=== PATIENT | female | born 1995 | race Caucasian/White ===

== ENCOUNTER → 2016-09-13 | Outpatient (CLI) | payer OTHER ==
--- NOTE | 2016-09-13 09:21 | WOMENS IMAGING REPORT ---
EXAM DESCRIPTION: U/S ABDOMEN LIMITED COMPLETED DATE/TIME: 09/13/2016 9:00 am REASON FOR STUDY: R94.5 R94.5 ABNORMAL RESULTS OF LIVER FUNCTION STUDIES COMPARISON: None. TECHNIQUE: Dynamic and static grayscale images acquired of the abdomen and recorded on PACS. Additio nal selected color Doppler and spectral images recorded. LIMITATIONS: None. FINDINGS: PANCREAS: No masses. Visualized pancreatic duct normal caliber. LIVER: No masses. Echotexture normal. LIVER VASCULATURE: Normal directional flow of the main portal vein and hepatic veins. GALLBLADDER: No stones. Normal wall thickness. No pericholecystic fluid. ULTRASOUND-DETECTED NOYOLA'S SIGN: Negative. INTRAHEPATIC DUCTS AND COMMON DUCT: CBD and intrahepatic ducts normal caliber. No filling defects. INFERIOR VENA CAVA: Normal flow. AORTA: No aneurysm. RIGHT KIDNEY: Normal size. Normal echogenicity. No solid or suspicious masses. No hydronephrosis. No calcifications. PERITONEAL AND RIGHT PLEURAL SPACE: No ascites or effusions. OTHER: No other significant findings. IMPRESSION: NORMAL RIGHT UPPER QUADRANT ULTRASOUND. TECHNICAL DOCUMENTATION: JOB ID: [id number] [employer] All Rights Reserved
== END ==
LOC: WI 08:18
PROVIDERS: ATTEND Internal Medicine Gastroenterology
DX: R94.5 Abnormal results of liver function studies (principal)
CPT/HCPCS: 76705

== ENCOUNTER 2016-11-18 17:09 | Emergency (ER) | payer OTHER ==
--- NOTE | 2016-11-18 17:28 | ER Document Report ---
ED General - General Chief Complaint: Lower Abdominal Pain Stated Complaint: ABDOMINAL PAIN Time Seen by Provider: 11/18/16 17:28 Mode of Arrival: Ambulatory Information source: Patient Notes: 21-year-old female presents with complaints of left flank pain suprapubic pressure. Patient has had similar episodes over the past few months, has been seen by 6 different physicians has had colonoscopies ultrasounds CODING CONSULTANT evaluations. Patient denies any fevers or chills notes after she urinates she has a sharp pain TRAVEL OUTSIDE OF THE [place] IN LAST 30 DAYS: No - HPI Onset: Other Onset/Duration: Intermittent Quality of pain: Sharp Severity: Mild Pain Level: 1 Associated symptoms: None Exacerbated by: Other Relieved by: Denies Similar symptoms previously: Yes Recently seen / treated by doctor: Yes - Related Data Allergies/Adverse Reactions: No Known Allergies Allergy (Unverified 11/18/16 17:18) Past Medical History - Social History Smoking Status: Never Smoker Cigarette use (# per day): No Chew tobacco use (# tins/day): No Smoking Education Provided: No Family History: Reviewed & Not Pertinent Renal/ Medical History: Denies: Hx Peritoneal Dialysis Review of Systems - Review of Systems Notes: REVIEW OF SYSTEMS: CONSTITUTIONAL : Denies fever, chills, or sweats. Denies recent illness. EENT: Denies eye, ear, throat, or mouth pain or symptoms. Denies nasal or sinus congestion or discharge. Denies throat, tongue, or mouth swelling or difficulty swallowing. CARDIOVASCULAR: Denies chest pain. Denies palpitations or racing or irregular heart beat. Denies ankle edema. RESPIRATORY: Denies cough, cold, or chest congestion. Denies shortness of breath, difficulty breathing, or wheezing. GASTROINTESTINAL: Denies abdominal pain or distention. Denies nausea, vomiting , or diarrhea. Denies blood in vomitus, stools, or per rectum. Denies black, tarry stools. Denies constipation. GENITOURINARY: Admits to sharp pain after she urinates FEMALE GENITOURINARY: Denies vaginal bleeding, heavy or abnormal periods, irregular periods. Denies vaginal discharge or odor. MUSCULOSKELETAL: Denies back or neck pain or stiffness. Denies joint pain or swelling. SKIN: Denies rash, lesions or sores. HEMATOLOGIC : Denies easy bruising or bleeding. LYMPHATIC: Denies swollen, enlarged glands. NEUROLOGICAL: Denies confusion or altered mental status. Denies passing out or loss of consciousness. Denies dizziness or lightheadedness. Denies headache. Denies weakness or paralysis or loss of use of either side. Denies problems with gait or speech. Denies sensory loss, numbness, or tingling. Denies seizures. PSYCHIATRIC: Denies anxiety or stress. Denies depression, suicidal ideation, or homicidal ideation. ALL OTHER SYSTEMS REVIEWED AND NEGATIVE. PHYSICAL EXAMINATION: GENERAL: Well-appearing, well-nourished and in no acute distress. HEAD: Atraumatic, normocephalic. EYES: Pupils equal round and reactive to light, extraocular movements intact, conjunctiva are normal. ENT: Nares patent, oropharynx clear without exudates. Moist mucous membranes. NECK: Normal range of motion, supple without lymphadenopathy LUNGS: Breath sounds clear to auscultation bilaterally and equal. No wheezes rales or rhonchi. HEART: Regular rate and rhythm without murmurs ABDOMEN: Soft, left flank pain. Female : deferred Musculoskeletal: Normal range of motion, no pitting or edema. No cyanosis. NEUROLOGICAL: Cranial nerves grossly intact. Normal speech, normal gait. Normal sensory, motor exams PSYCH: Normal mood, normal affect. SKIN: Vitiligo Dictation was performed using [employer] voice recognition software Physical Exam - Vital signs Vitals: Temp Pulse Resp BP Pulse Ox 98.5 F 85 16 134/80 H 97 11/18/16 17:16 11/18/16 17:16 11/18/16 17:16 11/18/16 17:16 11/18/16 17:16 Course - Re-evaluation Re-evalutation: 11/18/16 17:39 Patient appears to have urinary complaints, however has had extensive workup up to this point, urinalysis pending 11/18/16 19:07 UA was negative for any sign of infection CT performed which is consistent with a hemorrhagic cyst which would explain patients intermittent pain. pt otherwise appears well will be dc home with close follow up. Pt otherwise has no severe pain consistent with an ovarian torsion After performing a Medical Screening Examination, I estimate there is LOW risk for ACUTE APPENDICITIS, BOWEL OBSTRUCTION, ACUTE CHOLECYSTITIS, PERFORATED DIVERTICULITIS, INCARCERATED HERNIA, PANCREATITIS, PELVIC INFLAMMATORY DISEASE, PERFORATED ULCER, ECTOPIC , or TUBO-OVARIAN ABSCESS, thus I consider the discharge disposition reasonable. Also, there is no evidence or peritonitis , sepsis, or toxicity. I have reevaluated this patient multiple times and no significant life threatening changes are noted. The patient and I have discussed the diagnosis and risks, and we agree with discharging home with close follow-up with the understanding that symptoms and presentations can change. We also discussed returning to the Emergency Department immediately if new or worsening symptoms occur. We have discussed the symptoms which are most concerning (e.g., bloody stool, fever, changing or worsening pain, vomiting) that necessitate immediate return. - Vital Signs Vital signs: Temp Pulse Resp BP Pulse Ox 98.5 F 85 16 134/80 H 97 11/18/16 17:16 11/18/16 17:16 11/18/16 17:16 11/18/16 17:16 11/18/16 17:16 - Laboratory Laboratory results interpreted by me: 11/18/16 18:05 Ur Leukocyte Esterase TRACE H - Diagnostic Test Radiology reviewed: Image reviewed, Reports reviewed - hemorrhagic cyst Discharge - Discharge Clinical Impression: Hemorrhagic ovarian cyst Abdominal pain Qualifiers: Abdominal location: lower abdomen, unspecified Qualified Code(s): R10.30 - Lower abdominal pain, unspecified Condition: Stable Disposition: HOME, SELF-CARE Instructions: Ovarian Cyst ([facility]) Referrals: [facility] [Provider Group] - Follow up tomorrow
[2016-11-18 18:26] LABS: APPEARANCE,URINE CLEAR; BILIRUBIN,URINE NEGATIVE (NEGATIVE); GLUCOSE, URINE NEGATIVE (NEGATIVE); KETONES,URINE NEGATIVE (NEGATIVE); LEUKOCYTE ESTERASE,URINE TRACE (NEGATIVE); NITRITE,URINE NEGATIVE (NEGATIVE); PROTEIN,URINE NEGATIVE (NEGATIVE); URINE SPECIFIC GRAVITY 1.019; UROBILINOGEN,URINE NEGATIVE mg/dL (<2.0)
--- NOTE | 2016-11-18 19:02 | RADIOLOGY REPORT (SQ) ---
EXAM DESCRIPTION: CT LTD RENAL STONE PROTOCOL ON COMPLETED DATE/TIME: 11/18/2016 6:49 pm REASON FOR STUDY: left flank pain COMPARISON: None. TECHNIQUE: CT scan of the abdomen and pelvis performed without intravenous or oral contrast. Images reviewed with lung, soft tissue, and bone windows. Reconstructed coronal and sagittal MPR images revi ewed. All images stored on PACS. All CT scanners at this facility use dose modulation, iterative reconstruction, and/or weight based d osing when appropriate to reduce radiation dose to as low as reasonably achievable (ALARA). [facility]: Dose Right [facility]: CareDose [facility]: Dose Right [facility]: Teradose 4D [facility]: Smart BorderJump RADIATION DOSE: Up-to-date CT equipment and radiation dose reduction techniques were employed. CTDIv ol: 5.1 mGy. DLP: 267 mGy-cm.mGy. LIMITATIONS: None. FINDINGS: LOWER CHEST: No significant findings. No nodules or infiltrates. NON-CONTRASTED LIVER, SPLEEN, ADRENALS: Evaluation limited by lack of IV contrast. No identified sign ificant masses. PANCREAS: No masses. No peripancreatic inflammatory changes. GALLBLADDER: No identified stones by CT criteria. No inflammatory changes to suggest cholecystitis. RIGHT KIDNEY AND URETER: No suspicious masses. Assessment limited by lack of IV contrast. No signif icant calcifications. No hydronephrosis or hydroureter. LEFT KIDNEY AND URETER: No suspicious masses. Assessment limited by lack of IV contrast. No signifi cant calcifications. No hydronephrosis or hydroureter. AORTA AND RETROPERITONEUM: No aneurysm. No retroperitoneal masses or adenopathy. BOWEL AND PERITONEAL CAVITY: No obvious masses or inflammatory changes. No free fluid. APPENDIX: Normal. PELVIS, BLADDER, AND ABDOMINAL WALL:4.5 cm hemorrhagic appearing lesion in the left adnexa with areas of hemorrhagic fluid in the pelvis. Intrauterine device is present in the uterus. . Bladder normal. BONES: No significant findings. OTHER: No other significant finding. IMPRESSION: 4.5 cm hemorrhagic appearing lesion in the left adnexa with areas of hemorrhagic fluid i n the pelvis. Consider pelvic ultrasound to further characterize. TECHNICAL DOCUMENTATION: JOB ID: [id number] Quality ID # [id number]: Final reports with documentation of one or more dose reduction techniques (e.g., Au tomated exposure control, adjustment of the mA and/or kV according to patient size, use of iterative reconstruction technique) 2010 [facility] [employer]- All Rights Reserved
[2016-11-18 19:20] VITALS: BP 129/86
== END 2016-11-18 19:20 | disposition home or self-care (01) ==
LOC: ER 17:09
DX: N83.202 Unspecified ovarian cyst, left side (principal); R10.30 Lower abdominal pain, unspecified
CPT/HCPCS: 76380; 81001; 81025; 99284

== ENCOUNTER → 2017-04-23 | Outpatient (CLI) | payer OTHER ==
--- NOTE | 2017-04-23 14:08 | RADIOLOGY REPORT (SQ) ---
EXAM DESCRIPTION: CHEST PA/LATERAL COMPLETED DATE/TIME: 04/23/2017 1:51 pm REASON FOR STUDY: COUGH COMPARISON: None. EXAM PARAMETERS: NUMBER OF VIEWS: two views TECHNIQUE: Digital Frontal and Lateral radiographic views of the chest acquired. RADIATION DOSE: NA LIMITATIONS: none FINDINGS: LUNGS AND PLEURA: No opacities, masses or pneumothorax. No pleural effusion. MEDIASTINUM AND HILAR STRUCTURES: No masses or contour abnormalities. HEART AND VASCULAR STRUCTURES: Heart normal size. No evidence for failure. BONES: No acute findings. HARDWARE: None in the chest. OTHER: No other significant finding. IMPRESSION: NO SIGNIFICANT RADIOGRAPHIC FINDING IN THE CHEST. TECHNICAL DOCUMENTATION: JOB ID: [id number] [employer]- All Rights Reserved
== END ==
LOC: OD 13:39
PROVIDERS: ATTEND Nurse Practitioner Family
DX: R05 Cough (principal)
CPT/HCPCS: 71046

== ENCOUNTER 2018-05-23 18:45 | Emergency (ER) | payer OTHER ==
--- NOTE | 2018-05-23 22:06 | ER Document Report ---
ED Medical Screen (RME) - General Chief Complaint: Pelvic Pain Stated Complaint: PELVIC CRAMPING, DIZZY Time Seen by Provider: 05/23/18 22:01 Primary Care Provider: RIK ALVAREZ FNP-C [Primary Care Provider] - Follow up as needed Notes: 23-year-old female, at about 5 weeks gestation by last menstrual period, chief complaint of worsening pelvic pain on both sides. Pain started getting worse, she states she was recommended by her APPARATUS LINEMAN to come in for evaluation. Denies vaginal bleeding, dysuria, discharge, or any other complaints. TRAVEL OUTSIDE OF THE [place] IN LAST 30 DAYS: No - Related Data Allergies/Adverse Reactions: No Known Allergies Allergy (Unverified 11/18/16 17:18) Past Medical History Renal/ Medical History: Denies: Hx Peritoneal Dialysis Past Surgical History: Reports: Hx Section Physical Exam - Vital signs Vitals: Temp Pulse Resp BP Pulse Ox 99.1 F 78 14 133/78 H 99 05/23/18 19:26 05/23/18 19:26 05/23/18 19:26 05/23/18 19:26 05/23/18 19:26 - Abdominal Tenderness: Tender - Mild generalized tenderness in the lower abdomen/pelvic area, nonspecific, no guarding Course - Vital Signs Vital signs: Temp Pulse Resp BP Pulse Ox 99.1 F 78 14 133/78 H 99 05/23/18 19:26 05/23/18 19:26 05/23/18 19:26 05/23/18 19:26 05/23/18 19:26 Doctor's Discharge - Discharge Referrals: RIK ALVAREZ FNP-C [Primary Care Provider] - Follow up as needed
[2018-05-23 22:46] LABS: ABSOLUTE BASOPHILS # (AUTO) 0.1 10^3/uL (0.0-0.2); ABSOLUTE EOSINOPHILS # (AUTO) 0.3 10^3/uL (0.0-0.6); ABSOLUTE LYMPHOCYTES (AUTO) 2.3 10^3/uL (0.5-4.7); ABSOLUTE MONOCYTES (AUTO) 0.7 10^3/uL (0.1-1.4); ABSOLUTE NEUT (AUTO) 6.1 10^3/uL (1.7-8.2); BASOPHILS % (AUTO) 0.6 % (0-2); EOSINOPHILS % (AUTO) 3.5 % (0-6); HEMATOCRIT 41.8 % (36.0-47.0); HEMOGLOBIN 14.3 g/dL (12.0-15.5); LYMPHOCYTES % (AUTO) 24.4 % (13-45); MEAN CORPUSCULAR HEMOGLOBIN 30.5 pg (27.0-33.4); MEAN CORPUSCULAR HGB CONC 34.3 g/dL (32.0-36.0); MEAN CORPUSCULAR VOLUME 89 fl (80-97); MONOCYTES % (AUTO) 7.4 % (3-13); PLATELET COUNT 277 10^3/uL (150-450); RED CELL DISTRIBUTION WIDTH 13.1 % (11.5-14.0); SEGMENTED NEUTROPHILS % (AUTO) 64.1 % (42-78); TOTAL CELLS COUNTED % (AUTO) 100 %; WHITE BLOOD COUNT 9.5 10^3/uL (4.0-10.5)
[2018-05-23 22:50] LABS: APPEARANCE,URINE SLIGHTLY-CLOUDY; BILIRUBIN,URINE NEGATIVE (NEGATIVE); COLOR,URINE STRAW; GLUCOSE, URINE NEGATIVE (NEGATIVE); KETONES,URINE NEGATIVE (NEGATIVE); LEUKOCYTE ESTERASE,URINE NEGATIVE (NEGATIVE); NITRITE,URINE NEGATIVE (NEGATIVE); PROTEIN,URINE NEGATIVE (NEGATIVE); URINE SPECIFIC GRAVITY 1.005; UROBILINOGEN,URINE NEGATIVE mg/dL (<2.0)
--- NOTE | 2018-05-23 23:37 | RADIOLOGY REPORT (SQ) ---
EXAM DESCRIPTION: US TRANSVAGINAL COMPLETED DATE/TME: 05/23/2018 22:04 CLINICAL HISTORY: 23 years, Female, pelvic pain, + HCG COMPARISON: None. TECHNIQUE: Transverse and longitudinal transvaginal sonographic images of the pelvis in a first trimester patient LIMITATIONS: None. FINDINGS: The uterus measures 9.5 x 5.6 x 5.0 cm. There is an intrauterine gestational sac. No visible yolk sac or pole. No detectable heart tones. Cervical length is 2.9 cm. The myometrium is homogenous. The right ovary measures 3.2 x 1.7 x 1.9 cm, the left 3.1 x 2.2 x 1.9 cm. Current ultrasound age is 5 weeks 4 days based on a mean sac diameter of 0.79 cm. No free fluid in the pelvis. No adnexal cyst or mass. Normal flow to both ovaries.. IMPRESSION: Intrauterine gestational sac however no pole, or yolk sac at this time. Current ultrasound age 5 weeks 4 days. Correlate with beta hCG levels. Close obstetric follow-up recommended copyright 2010 [employer]- All Rights Reserved
--- NOTE | 2018-05-24 00:28 | ER Document Report ---
ED GI/ - General Chief Complaint: Pelvic Pain Stated Complaint: PELVIC CRAMPING, DIZZY Time Seen by Provider: 05/23/18 22:01 Primary Care Provider: [facility] [Provider Group] - Follow up as needed Notes: 23-year-old female, at about 5 weeks gestation by last menstrual period, chief complaint of worsening pelvic pain on both sides. Pain started getting worse, she states she was recommended by her SAAS ARCHITECT to come in for evaluation. Denies vaginal bleeding, dysuria, discharge, or any other complaints. TRAVEL OUTSIDE OF THE [place] IN LAST 30 DAYS: No - Related Data Allergies/Adverse Reactions: No Known Allergies Allergy (Verified 05/23/18 22:22) Past Medical History - General Information source: Patient Last Menstrual Period: unknown - Social History Smoking Status: Never Smoker Frequency of alcohol use: None Drug Abuse: None Lives with: Family Family History: Reviewed & Not Pertinent Patient has suicidal ideation: No Patient has homicidal ideation: No - Medical History Medical History: Negative Renal/ Medical History: Denies: Hx Peritoneal Dialysis Past Surgical History: Reports: Hx Section - Immunizations Immunizations up to date: Yes Hx Diphtheria, Pertussis, Tetanus Vaccination: Yes Review of Systems - Review of Systems Constitutional: No symptoms reported EENT: No symptoms reported Cardiovascular: No symptoms reported Respiratory: No symptoms reported Gastrointestinal: See HPI Genitourinary: See HPI Female Genitourinary: See HPI Musculoskeletal: No symptoms reported Skin: No symptoms reported Hematologic/Lymphatic: No symptoms reported Neurological/Psychological: No symptoms reported Physical Exam - Vital signs Vitals: Temp Pulse Resp BP Pulse Ox 99.1 F 78 14 133/78 H 99 05/23/18 19:26 05/23/18 19:26 05/23/18 19:26 05/23/18 19:26 05/23/18 19:26 - Notes Notes: GENERAL: Alert, interacts well. No acute distress. HEAD: Normocephalic, atraumatic. EYES: Pupils equal, round, and reactive to light. Extraocular movements intact. ENT: Oral mucosa moist, tongue midline. Oropharynx unremarkable. Airway patent. Nares patent, no nasal septal hematoma, TM's intact. NECK: Full range of motion. Supple. Trachea midline. LUNGS: Clear to auscultation bilaterally, no wheezes, rales, or rhonchi. No respiratory distress. HEART: Regular rate and rhythm. No murmur ABDOMEN: Minimal generalized lower abdominal tenderness, nonspecific, no guarding GENITOURINARY: Deferred EXTREMITIES: Moves all 4 extremities spontaneously. No edema, normal radial and dorsalis pedis pulses bilaterally. No cyanosis. BACK: no cervical, thoracic, lumbar midline tenderness. No saddle anesthesia, normal distal neurovascular exam. NEUROLOGICAL: Alert and oriented x3. Normal speech. [cranial nerves II through XII grossly intact]. PSYCH: Normal affect, normal mood. SKIN: Warm, dry, normal turgor. No rashes or lesions noted. Course - Re-evaluation Re-evalutation: Patient smiling and well-appearing. Minimal generalized tenderness in the mid to lower abdomen, nonspecific, no guarding. Unremarkable vital signs. CBC unremarkable, urinalysis unremarkable, ultrasound showing IUP, possibly early, possibly not developed correctly. Patient is not bleeding. HCG is elevated. I discussed results with patient in detail. Provided with prescription for her to have her hCG repeated, discussed the different details, discussed close follow-up with [facility]AS ARCHITECT which she already has scheduled. Discussed return precautions in detail. Patient states understanding and agr eement. - Vital Signs Vital signs: Temp Pulse Resp BP Pulse Ox 99 F 79 18 124/68 98 05/24/18 00:28 05/24/18 00:28 05/24/18 00:28 05/24/18 00:28 05/24/18 00:28 - Laboratory Result Diagrams: 05/23/18 22:15 Laboratory results interpreted by me: 05/23/18 05/23/18 22:10 22:10 Beta HCG, Quant 4973.60 H Urine Blood SMALL H Discharge - Discharge Clinical Impression: Pelvic pain affecting Qualifiers: Trimester: first trimester Qualified Code(s): O26.891 - Other specified related conditions, first trimester Condition: Stable Disposition: HOME, SELF-CARE Additional Instructions: Your ultrasound shows a in the uterus measuring at 5 weeks, your hormone is elevated appropriately, however we do not see definite add itional desired features or heartbeat at this time. This can be normal, I recommend that you get a repeat hCG to monitor the status. Please follow-up closely with your SAAS ARCHITECT. Return if you worsen including severe worsening pain, heavy bleeding, passing out, fever, or any other concerning or worsening symptoms. Forms: Follow-Up Laboratory Testing Referrals: [facility] [Provider Group] - Follow up as needed
[2018-05-24 03:52] VITALS: BP 124/68
== END 2018-05-24 00:28 | disposition home or self-care (01) ==
LOC: ER 18:45
DX: O26.891 Other specified pregnancy related conditions, first trimester (principal); R10.2 Pelvic and perineal pain; Z3A.01 Less than 8 weeks gestation of pregnancy
CPT/HCPCS: 36415; 76817; 81001; 84702; 85025; 86900; 86901; 93976; 99284

== ENCOUNTER → 2018-05-26 | Outpatient (CLI) | payer OTHER | LOC: LAB 11:19 | DX: O26.891 Other specified pregnancy related conditions, first trimester (principal); R52 Pain, unspecified; Z3A.00 Weeks of gestation of pregnancy not specified | CPT/HCPCS: 36415; 84702 ==

== ENCOUNTER 2018-10-22 11:37 | Outpatient (CLI) | payer OTHER ==
[~2018-10-22 11:37] MED LIST: BETAMET ACET/BETAMET NA INJ 6 MG/1 ML IM ONE
[2018-10-22] MEDS ORDERED: BETAMET ACET/BETAMET NA INJ 6 MG/1 ML ONE (11:47)
== END 2018-10-22 12:06 | disposition home or self-care (01) ==
LOC: LC 11:37
PROVIDERS: ATTEND Student in an Organized Health Care Education/Training Program
DX: O26.872 Cervical shortening, second trimester (principal); Z3A.26 26 weeks gestation of pregnancy
CPT/HCPCS: 96372; J0702

== ENCOUNTER 2018-10-23 10:48 | Outpatient (CLI) | payer OTHER ==
[2018-10-23] MEDS ORDERED: BETAMET ACET/BETAMET NA INJ 6 MG/1 ML IM ONE (11:30)
[2018-10-23 11:34] LABS: APPEARANCE,URINE SLIGHTLY-CLOUDY; BILIRUBIN,URINE NEGATIVE (NEGATIVE); CALCIUM OXALATE CRYSTALS,URINE MODERATE /HPF; GLUCOSE, URINE 50 mg/dL (NEGATIVE); KETONES,URINE TRACE mg/dL (NEGATIVE); LEUKOCYTE ESTERASE,URINE NEGATIVE (NEGATIVE); NITRITE,URINE NEGATIVE (NEGATIVE); PROTEIN,URINE 30 mg/dL (NEGATIVE); URINE SPECIFIC GRAVITY 1.028; UROBILINOGEN,URINE NEGATIVE mg/dL (<2.0)
[2018-10-23 11:35] LABS: COLOR,URINE YELLOW
[2018-10-23 11:44] LABS: URINE AMPHETAMINES SCREEN NEGATIVE; URINE BARBITURATES SCREEN NEGATIVE; URINE BENZODIAZEPINES SCREEN NEGATIVE; URINE COCAINE SCREEN NEGATIVE; URINE MARIJUANA (THC) SCREEN NEGATIVE; URINE METHADONE SCREEN NEGATIVE; URINE PHENCYCLIDINE SCREEN NEGATIVE
[2018-10-23] MEDS ORDERED: BETAMET ACET/BETAMET NA INJ 6 MG/1 ML ONE (11:44)
--- NOTE | 2018-10-23 12:34 | RADIOLOGY REPORT (SQ) ---
EXAM DESCRIPTION: U/S OB LIMITED COMPLETED DATE/TIME: 10/23/2018 12:18 pm REASON FOR STUDY: pre term labor COMPARISON: None. TECHNIQUE: Limited transabdominal grayscale ultrasound for evaluation of specific requested obstetri vicki parameters. LIMITATIONS: None. FINDINGS: CERVICAL LENGTH: 1.8 cm. Closed. GIGI: 18.6 cm. FHR: 132 beats per minute. PRESENTATION: Cephalic. PLACENTA: Anterior. ANATOMY: Not assessed OTHER: No other significant findings. IMPRESSION: LIMITED OBSTETRICAL ULTRASOUND WITH MEASURED PARAMETERS DELINEATED ABOVE. Trimester of : Second trimester - 13 weeks 1 day to 27 weeks 6 days. TECHNICAL DOCUMENTATION: JOB ID: [id number] [employer]- All Rights Reserved Reading location - IP/workstation name: [email or web address]
[2018-10-23] MEDS ORDERED: ACETAMINOPHEN 325 MG TABLET ONE (12:54)
[2018-10-23] MEDS ORDERED: ACETAMINOPHEN 325 MG TABLET PO ONE (13:01)
[2018-10-23] MEDS ORDERED: NALBUPHINE HCL INJ 10 MG/1 ML AMPULE INJ ONE (15:32)
[2018-10-23] MEDS ORDERED: NALBUPHINE HCL INJ 10 MG/1 ML AMPULE ONE (15:34)
== END 2018-10-23 16:04 | disposition home or self-care (01) ==
LOC: LC 10:48
PROVIDERS: ATTEND Obstetrics & Gynecology
PROC: 4A1HXCZ Monitoring of Products of Conception, Cardiac Rate, External Approach (ICD-10-PCS; principal; 2018-10-23)
DX: O47.02 False labor before 37 completed weeks of gestation, second trimester (principal); Z3A.26 26 weeks gestation of pregnancy
CPT/HCPCS: 59899; 96372; 81001; 80307; 76815; J2300; J0702

== ENCOUNTER 2018-11-09 07:07 | Inpatient (IN) | payer OTHER ==
[2018-11-09 07:52] LABS: APPEARANCE,URINE CLEAR; BILIRUBIN,URINE NEGATIVE (NEGATIVE); COLOR,URINE STRAW; GLUCOSE, URINE 150 mg/dL (NEGATIVE); KETONES,URINE NEGATIVE (NEGATIVE); LEUKOCYTE ESTERASE,URINE NEGATIVE (NEGATIVE); NITRITE,URINE NEGATIVE (NEGATIVE); PROTEIN,URINE NEGATIVE (NEGATIVE); URINE SPECIFIC GRAVITY 1.009; UROBILINOGEN,URINE NEGATIVE mg/dL (<2.0)
[2018-11-09] MEDS ORDERED: TERBUTALINE SULFATE INJ/PF 1 MG/1 ML SDV ONE (07:55)
[2018-11-09 08:08] LABS: URINE AMPHETAMINES SCREEN NEGATIVE; URINE BARBITURATES SCREEN NEGATIVE; URINE BENZODIAZEPINES SCREEN NEGATIVE; URINE COCAINE SCREEN NEGATIVE; URINE MARIJUANA (THC) SCREEN NEGATIVE; URINE METHADONE SCREEN NEGATIVE; URINE PHENCYCLIDINE SCREEN NEGATIVE
[2018-11-09] MEDS ORDERED: MAGNESIUM SULFATE 20 GM/500 ML RTUINJ IV ONE (08:08)
[2018-11-09] MEDS ORDERED: MAGNESIUM SULFATE 4 GM/100 ML RTUPB IV ONE (08:08)
[2018-11-09] MEDS ORDERED: BETAMET ACET/BETAMET NA INJ 6 MG/1 ML ONE (08:13)
[2018-11-09] MEDS ORDERED: AMPICILLIN SOD INJ 2 GM VIAL ONE (08:28)
[2018-11-09 08:47] LABS: BACTERIA (WET MOUNT) 3+ BACTERIA SEEN; EPITHELIALS (WET MOUNT) 3+ EPITHELIALS SEEN; RBCS (WET MOUNT) FEW RBCS SEEN; T.VAGINALIS (WET MOUNT) NO TRICHOMONAS SEEN; WBCS (WET MOUNT) 3+ WBCS SEEN; YEAST (WET MOUNT) NO YEAST SEEN
--- NOTE | 2018-11-09 09:11 | Admission Physical ---
Datetime Report Generated by CPN: 11/09/2018 09:10 CURRENT ADMISSION Chief Complaint: Uterine Contractions Indication for Induction: Not Applicable Admit Impression : , Intrauterine ; Active Labor Admit Plan- Other: Transfer ALLERGIES Medication Allergies: No Medication Allergies: No Known Allergies (10/22/2018) OBSTETRICAL HISTORY EDC: 01/23/2019 00:00 : 2 Para: 1 Term: 0 : 1 Livin Cesareans: 1 Gestational Diabetes: No Rh Sensitization: No Incompetent Cervix: Yes LANDEN: No Infertility: No Uterine Anomaly: No IUGR: No Hx Previous C/S: Yes Macrosomia: No Hx Loss/Stillborn: No PIH: No Hx : No Placenta Previa/Abruption: No PTL/PROM: Yes Current Procedures: Ultrasound Obstetrical History Comments: G1- 31 PTD, primary c/s G2- current, P17 shots, betamethasone inj MEDICAL HISTORY Medical History Comments: sleep apnea- cpap, PHYSICAL EXAM General: Normal HEENT: Normal Neurologic: Normal Thyroid: Normal Heart: Normal Lungs: Normal Breast: Normal Back: Normal Abdomen: Normal Genitourinary Exam: Normal Extremities: Normal DTRs: Normal Pelvic Type: Adequate Vital Signs: Reviewed; Within Normal Limits VAGINAL EXAM Dilatation: 5 Effacement: 50% Station: -3 Contraction Comments: q 2 MEMBRANES Membranes: Intact FETUS A EGA: 29.2 Monitoring: External US FHR- Baseline: 140s Variability: Moderate 6-25bpm Accelerations: 15X15 Decelerations: None FHR Category: Category I Admit Comment: This 23 yo presented to L_D c/o contractions. She alas h/o PTD at 31 weeks in 2016 w/ a C/S secondary to breech. She reports good movement. Her membranes are intact. She received Betamethasone at 26 weeks and is currently receiving 17-P. Her cervix is [address] Blake. INFORMED CONSENT Informed Consent Obtained: Risks, Benefits and Alternatives Discussed Signature: with User ID: [email or web address]
--- NOTE | 2018-11-09 09:21 | PDOC TRANSFER SUMMARY ---
General Admission Date/PCP: AriannaTracy Alejandra DO Admission Date: 11/09/18 Transfer Date: 11/09/18 Accepting Facility: [facility] Accepting Physician: Dr. Manzo Resuscitation Status: Full Code - Transfer Diagnosis (1) Previous section complicating Is this a current diagnosis for this admission?: Yes (2) labor in third trimester Is this a current diagnosis for this admission?: Yes (3) Previous delivery in third trimester, antepartum Is this a current diagnosis for this admission?: Yes - Transfer Medications Home Medications: Nej447/Iron Fum/Folic/Docusate [ 19 Tablet] 1 each PO DAILY 10/22/18 Hydroxyprogesterone Caproat/Pf [[place]] 250 mg IM Q7MP PRN 11/09/18 - Allergies Allergies/Adverse Reactions: No Known Allergies Allergy (Verified 10/22/18 11:50) - Diet/Activity Discharge Activity: Pelvic Rest Hospital Course Hospital Course: The patient arrived at L&D complaining of contractions. Patient has had labor during this . She received betamethasone at 26 weeks. She has currently has an intrauterine at 29-2/7 weeks. Her cervix is 5/50%/-3 and vertex. Patient's membranes are intact. Patient received a rescue dose of betamethasone. Cultures for gonorrhea chlamydia were obtained. Her GBS culture was also collected. She was bolused with a 4 g dose of magnesium sulfate, which is currently being maintained at grams per hour. Her contractions are now every 6 to 12 minutes apart. Heart tones are reactive. Physical Exam Vital Signs: Intake & Output 11/08/18 11/09/18 11/10/18 06:59 06:59 06:59 Weight 73.7 kg General appearance: PRESENT: no acute distress Respiratory exam: PRESENT: clear to auscultation thomas Cardiovascular exam: PRESENT: RRR GI/Abdominal exam: PRESENT: normal bowel sounds, soft Extremities exam: ABSENT: calf tenderness, clubbing, full ROM, joint swelling, pedal edema, tenderness, +1 edema, +2 edema, other Results Laboratory Results: 11/09/18 07:16 Urine Color STRAW Urine Appearance CLEAR Urine pH 7.0 Ur Specific [place] 1.009 Urine Protein NEGATIVE Urine Glucose (UA) 150 H Urine Ketones NEGATIVE Urine Blood NEGATIVE Urine Nitrite NEGATIVE Ur Leukocyte Esterase NEGATIVE Urine WBC (Auto) 1 Urine RBC (Auto) 1 Plan Discharge Plan: 1. Transfer to [facility]--transfer accepted by Dr. Manzo
[2018-11-09] MEDS ORDERED: MISOPROSTOL 0.2 MG TABLET ONE (09:41)
[2018-11-09] MEDS ORDERED: OXYTOCIN/NORMAL SALINE 20 UNIT/1,000 ML RTUINJ ONE (09:41)
[2018-11-09] MEDS ORDERED: OXYTOCIN 10 UNIT/ML VIAL ONE (09:41)
[2018-11-09] MEDS ORDERED: LIDOCAINE 1% INJ-PF (10 MG/ML) 30 ML SDV ONE (09:41)
[2018-11-09 10:12] LABS: CHLAM PCR NOT DETECTED (NOT DETECT)
[2018-11-09] MEDS ORDERED: AMPICILLIN SOD INJ 1 GM VIAL ONE (11:37)
[2018-11-09] MEDS ORDERED: FENTANYL/BUPIVACAINE/NS/PF 0 MCG/0 ML RTUINJ EPI ONE (11:57)
[2018-11-09] MEDS ORDERED: EPHEDRINE SULFATE INJ 50 MG/1 ML AMPULE ONE (11:57)
[2018-11-09] MEDS ORDERED: BUPIVACAINE HCL 0.25 % INJ/PF (2.5 MG/1 ML) 30 ML VIAL ONE (11:58)
[2018-11-09 12:02] LABS: ABSOLUTE LYMPHOCYTES (AUTO) 0.8 10^3/uL (0.5-4.7); ABSOLUTE MONOCYTES (AUTO) 0.4 10^3/uL (0.1-1.4); ABSOLUTE NEUT (AUTO) 14.5 10^3/uL (1.7-8.2); BASOPHILS % (AUTO) 0.3 % (0-2); EOSINOPHILS % (AUTO) 0.2 % (0-6); HEMATOCRIT 33.9 % (36.0-47.0); HEMOGLOBIN 11.4 g/dL (12.0-15.5); LYMPHOCYTES % (AUTO) 5.2 % (13-45); MEAN CORPUSCULAR HEMOGLOBIN 30.5 pg (27.0-33.4); MEAN CORPUSCULAR HGB CONC 33.7 g/dL (32.0-36.0); MEAN CORPUSCULAR VOLUME 91 fl (80-97); MONOCYTES % (AUTO) 2.3 % (3-13); PLATELET COUNT 205 10^3/uL (150-450); RED BLOOD COUNT 3.75 10^6/uL (3.72-5.28); RED CELL DISTRIBUTION WIDTH 13.4 % (11.5-14.0); TOTAL CELLS COUNTED % (AUTO) 100 %; WHITE BLOOD COUNT 15.7 10^3/uL (4.0-10.5)
[2018-11-09] MEDS ORDERED: NALBUPHINE HCL INJ 10 MG/1 ML AMPULE ONE (12:17)
[2018-11-09] MEDS ORDERED: ZOLPIDEM TARTRATE 5 MG TABLET PO PRN (12:36)
[2018-11-09] MEDS ORDERED: BENZOCAINE/MENTHOL AEROSOL SPRAY 56 ML TOP PRN (12:36)
[2018-11-09] MEDS ORDERED: ACETAMINOPHEN WITH CODEINE #3 TABLET PO PRN ×2 (12:36)
[2018-11-09] MEDS ORDERED: DIBUCAINE 1% OINTMENT 56 GM TP PRN (12:36)
[2018-11-09] MEDS ORDERED: DIPH/PERTUSS(ACELL)/TETANUS VAC/PF 0.5 ML SYR (>=10YO) IM PRN (12:36)
[2018-11-09] MEDS ORDERED: OXYTOCIN/NORMAL SALINE 20 UNIT/1,000 ML RTUINJ IV PRN (12:36)
--- NOTE | 2018-11-09 13:23 | Delivery Summary ---
Del Sum A-C Datetime Report Generated by CPN: 11/09/2018 13:23 DELIVERY PERSONNEL DELIVERY PERSONNEL: [id number] Delivery Doctor:: Tracy Alejandra MD Labor and Delivery Nurse:: Alfreda Eduardo RN (Annotations: Data stored by N on behalf of user) Labor and Delivery Nurse:: Vicki Loredo RN Physical Therapy Instructor:: Johnna Escalona RN Fire Crew Worker:: Dr. Eben Joaquintal Nursery Nurse:: Amna Pepe RN Vice President For Philanthropy/APPOINTMENT SCHEDULER: Emilee Francisco, ST MATERNAL INFORMATION Delivery Anesthesia: Local Medications After Delivery: Pitocin Bolus-Please Comment; Pitocin Drip 20 Units/1000ml NSS Maternal Complications: None Complication Details: LABOR Provider Comments: of a viable male w/ KITTY w/should cord x 1 presentation; APGARS pending; 2nd right periurethral and 2nd degree right vaginal wall LABOR SUMMARY EDC: 01/23/2019 00:00 No. Babies in Womb: 1 Attempted: Yes Labor Anesthesia: None LABOR INFORMATION Reason for Induction: Not Applicable Onset of Labor: 11/09/2018 04:00 Complete Dilatation: 11/09/2018 12:05 Oxytocin: N/A Group B Beta Strep: unknown Antibiotics # of Doses: 2 Antibiotics Time of Last Dose: 1140 Name of Antibiotic Given: AMPICILLIN Steroids Given: Full Course Reason Steroids Not Administered: Not Applicable MEMBRANES Membranes Rupture Method: Artificial Rupture of Membranes: 11/09/2018 09:51 Length of Rupture (hr): 2.33 Amniotic Fluid Color: Clear Amniotic Fluid Amount: Moderate Amniotic Fluid Odor: Normal STAGES OF LABOR Stage 1 hr: 8 Stage 1 min: 5 Stage 2 hr: 0 Stage 2 min: 6 Stage 3 hr: 0 Stage 3 min: 15 Total Time in Labor hr: 8 Total Time in Labor min: 26 VAGINAL DELIVERY Episiotomy: None Laceration #1: Vaginal; Periurethral Laceration Extension #1: Second Degree Laceration #2: Vaginal Laceration Extension #2: Second Degree Laceration Repair: Yes Laceration Repair Note: Both lacerations repaired with 3-0 Chromic Sponge Count Correct: Yes Sharps Count Correct: Yes BABY A INFORMATION Infant Delivery Date/Time: 11/09/2018 12:11 Method of Delivery: Vaginal Born in Route : No : Successful Forceps: N/A Vacuum Extraction: N/A Shoulder Dystocia : No PRESENTATION/POSITION BABY A Presentation: Cephalic Cephalic Presentation: Vertex Vertex Position: Right Occipital Anterior Breech Presentation: N/A PLACENTA INFORMATION BABY A Placenta Delivery Time : 11/09/2018 12:26 Placenta Method of Delivery: Spontaneous Placenta Status: Delivered SCORES BABY A Heart Rate 1 min: >100 bpm Resp Effort 1 min: Good Cry Reflex Irritability 1 min: Cough or Sneeze or Pulls Away Muscle Tone 1 min: Some Flexion of Extremities Color 1 min: Blue/Pale Resuscitation Effort 1 min: PPV/NCPAP SCORE 1 MIN: 7 Heart Rate 5 min: >100 bpm Resp Effort 5 min: Good Cry Reflex Irritability 5 min: Cough or Sneeze or Pulls Away Muscle Tone 5 min: Active Motion Color 5 min: Blue/Pale Resuscitation Effort 5 min: PPV/NCPAP SCORE 5 MIN: 8 INFORMATION BABY A Gestational Age at Delivery: 29.2 Gestational Status: - <34 Weeks Outcome : Liveborn Condition : Fair Sex: Male IDENTIFICATION BABY A Verification Date/Time: 11/09/2018 12:49 ID Band Number: [id number] Mother's Name Verified: Yes RN Verifying : BL LANGND, RN/ B BAIDY, RN WEIGHT/LENGTH BABY A Birthweight (gm): 2006 Weight (lb): 4 Weight (oz): 7 Infant Length (in): 17.50 Infant Length (cm): 44.45 CORD INFORMATION BABY A No. Cord Vessels: 3 Nuchal Cord : N/A Nuchal Cord- Other: SHOULDER Cord Blood Taken: Yes-For Storage (Mom's Blood type +) Infant Suction: None ASSESSMENT BABY A Infant Complications: Other Infant Complications- Other: @ 29+2 Physical Findings at Delivery: Caput Succedaneum Skin to Skin: No Fire Crew Worker/ALS Called : Yes Care By: Fern MANINDERLINCARLOS ENRIQUE Transferred To: NICU BABY B INFORMATION : N/A SIGNATURES Signature: with User ID: [email or web address]
[2018-11-09] MEDS ORDERED: IBUPROFEN 800 MG TABLET PO SCH (14:00)
--- NOTE | 2018-11-09 17:33 | PDOC DISCHARGE SUMMARY ---
General - Admit/Disc Date/PCP Admission Date/Primary Care Provider: 11/09/18 09:56 SURJIT SANDRA Discharge Date: 11/09/18 - Discharge Diagnosis (1) Previous section complicating Is this a current diagnosis for this admission?: Yes (2) labor in third trimester Is this a current diagnosis for this admission?: Yes (3) Previous delivery in third trimester, antepartum Is this a current diagnosis for this admission?: Yes (4) delivery Is this a current diagnosis for this admission?: Yes (5) Vaginal after section Is this a current diagnosis for this admission?: Yes - Additional Information Resuscitation Status: Full Code Discharge Diet: As Tolerated, Regular Discharge Activity: Activity As Tolerated, Pelvic Rest Home Medications: Vit/Dha [ Multi + Dha Capsule] 1 cap PO DAILY capsule 11/09/18 History of Present Illness Patient complains of: Contractions History of Present Illness: MARGIE LINARES is a 23 year old -1-0-1 presented to labor delivery with an intrauterine at 29-2/7 weeks, complaining of contractions. This patient cervix was checked and he was dilated 5 cm. Patient was placed on magnesium sulfate and given 1 rescue dose of betamethasone. Receive 2 doses of betamethasone at 26 weeks. Ampicillin was started also. The airlift team arri joana to airlift her to [place]. However, when they arrived, her cervix was 7- 8 cm. She delivered a male fetus at 1211. Hospital Course Hospital Course: Her course was essentially uneventful. A few hours later patient was asking to be discharged home secondary to fact that her was transferred to [place]. Her lochia is decreasing. Patient denies chest pain, shortness of breath, fever/chills or nausea/vomiting. He is ambulating and voiding without difficulty. She is tolerating a regular diet. Physical Exam - Physical Exam Vital Signs: Intake & Output 11/08/18 11/09/18 11/10/18 06:59 06:59 06:59 Weight 73.7 kg General appearance: PRESENT: no acute distress Respiratory exam: PRESENT: clear to auscultation thomas Cardiovascular exam: PRESENT: RRR GI/Abdominal exam: PRESENT: normal bowel sounds, soft, other - Fundus firm and below umbilicus Extremities exam: ABSENT: calf tenderness, clubbing, full ROM, joint swelling, pedal edema, tenderness, +1 edema, +2 edema, other Result Laboratory Results: 11/09/18 11:49 11/09/18 11/09/18 11/09/18 07:16 11:49 11:49 WBC 15.7 H RBC 3.75 Hgb 11.4 L Hct 33.9 L MCV 91 MCH 30.5 MCHC 33.7 RDW 13.4 Plt Count 205 Seg Neutrophils % 92.0 H Lymphocytes % 5.2 L Monocytes % 2.3 L Eosinophils % 0.2 Basophils % 0.3 Absolute Neutrophils 14.5 H Absolute Lymphocytes 0.8 Absolute Monocytes 0.4 Absolute Eosinophils 0.0 Absolute Basophils 0.0 Urine Color STRAW Urine Appearance CLEAR Urine pH 7.0 Ur Specific [place] 1.009 Urine Protein NEGATIVE Urine Glucose (UA) 150 H Urine Ketones NEGATIVE Urine Blood NEGATIVE Urine Nitrite NEGATIVE Ur Leukocyte Esterase NEGATIVE Urine WBC (Auto) 1 Urine RBC (Auto) 1 Blood Type B POSITIVE Antibody Screen NEGATIVE Plan Discharge Plan: 1. Discharge home 2. Follow-up in the office in 4 weeks for exam or sooner if needed Time Spent: Greater than 30 Minutes Acute Heart Failure - Is this a Heart Failure Patient?: No
[2018-11-09] MEDS ORDERED: DOCUSATE SODIUM 100 MG CAPSULE PO SCH (18:00)
[2018-11-09] MEDS ORDERED: FERROUS SULFATE 325 MG TABLET PO SCH (18:00)
[2018-11-10] MEDS ORDERED: PRENATAL VITAMIN W DHA CAPSULE PO SCH (10:00)
[2018-11-10] MEDS ORDERED: SENNOSIDES/DOCUSATE 8.6-50 MG 1 EACH TABLET PO SCH (10:00)
== END 2018-11-09 18:55 | disposition home or self-care (01) | DRG 805 ==
LOC: LC 07:07 → LR 09:56 → 2S 16:49
PROVIDERS: ADMIT Obstetrics & Gynecology; ATTEND Obstetrics & Gynecology
PROC: 10E0XZZ Delivery of Products of Conception, External Approach (ICD-10-PCS; principal; 2018-11-09)
PROC: 0KQM0ZZ Repair Perineum Muscle, Open Approach (ICD-10-PCS; 2018-11-09)
PROC: 0UQMXZZ Repair Vulva, External Approach (ICD-10-PCS; 2018-11-09)
DX: O60.14X0 Preterm labor third trimester with preterm delivery third trimester, not applicable or unspecified (principal); O34.33 Maternal care for cervical incompetence, third trimester; Z37.0 Single live birth; O34.211 Maternal care for low transverse scar from previous cesarean delivery; O69.3XX0 Labor and delivery complicated by short cord, not applicable or unspecified; O71.82 Other specified trauma to perineum and vulva; Z3A.29 29 weeks gestation of pregnancy
CPT/HCPCS: 36415; 80307; 81001; 85025; 86592; 86850; 86900; 86901; 87081; 87210; 87491; 87591; 88307; J0290; J0702; J2300; J2590; J3010; J3105; J3475; J3490